=== PATIENT | female | born 1970 | race Caucasian/White ===

== ENCOUNTER 2021-11-21 13:24 | Inpatient (IN) | payer MEDICARE, MEDICAID ==
[~2021-11-21] VITALS: Ht 170.2 cm; Wt 60.9 kg
[2021-11-21 14:14] VITALS: BP 134/61
[2021-11-21 14:20] VITALS: BP 134/61
[2021-11-21] MEDS ORDERED: SEROQUEL25 MG PO (14:30)
[2021-11-21] MEDS ORDERED: lithium PO (14:30)
[2021-11-21 15:26] VITALS: BP 134/61
[2021-11-21] MEDS: Morphine 4mg INJECTION 4 MG/ML INJ IV PRN ×2 (17:19→23:34)
[2021-11-21] MEDS: ONDANSETRON HCL INJ 2MG/ML 2ML 2 MG/ML VIAL IV PRN ×2 (17:19→23:33)
[2021-11-21] MEDS ORDERED: SODIUM CHLORIDE 0.9% 250ML 250 ML ONE ×2 (17:27→18:42)
[2021-11-21] MEDS: METRONIDAZOLE 500MG/NS 100ML 100 ML IV SCH (18:34)
[2021-11-21 20:00] VITALS: BP 134/61
[2021-11-21 22:08] VITALS: BP 98/58
[2021-11-22] VITALS (7 sets, daily range): BP systolic 92–103; BP diastolic 51–85
[2021-11-22] MEDS: METRONIDAZOLE 500MG/NS 100ML 100 ML IV SCH ×3 (02:11→17:45)
[2021-11-22] MEDS: Morphine 4mg INJECTION 4 MG/ML INJ IV PRN ×4 (02:53→21:19)
[2021-11-22] MEDS: ONDANSETRON HCL INJ 2MG/ML 2ML 2 MG/ML VIAL IV PRN ×4 (02:53→21:19)
[2021-11-22 08:07] LABS: BASOPHILS # (AUTO) 0.1 (0.0-0.1); BASOPHILS % 1.4 % (0.0-1.0); EOSINOPHILS # (AUTO) 0.1 (0.0-0.4); EOSINOPHILS % 2.1 % (0.0-6.0); HEMATOCRIT 39.5 % (34.2-44.1); HEMOGLOBIN 12.2 g/dL (12.0-16.0); LYMPHOCYTES # (AUTO) 1.6 (1.0-3.2); MEAN CORPUSCULAR HEMOGLOBIN 30.5 pg (28-32); MEAN CORPUSCULAR HGB CONC 30.9 g/dL (31-35); MEAN CORPUSCULAR VOLUME 98.8 fL (81-99); MONOCYTES # (AUTO) 0.5 (0.2-0.8); MONOCYTES % 11.7 % (4.4-11.3); NEUTROPHILS % 47.6 % (38.7-80.0); PLATELET COUNT 130 x10e3/uL (140-360); RED CELL DISTRIBUTION WIDTH 12.7 % (11.7-14.4)
[2021-11-22 08:32] LABS: ALBUMIN 3.4 g/dL (3.5-5.0); ALBUMIN/GLOBULIN RATIO 1.6 (0.8-2.0); ANION GAP 10.1 mmol/L (8-16); CALCIUM 8.8 mg/dL (8.4-10.2); CREATININE, SERUM 0.9 mg/dL (0.57-1.11); POTASSIUM 4.1 mmol/L (3.5-5.1)
[2021-11-22] MEDS: LITHIUM CARBONATE 150 MG CAPSULE PO SCH (10:30)
[2021-11-22] MEDS ORDERED: EPHEDRINE SULFATE INJ 50 MG/ML VIAL ONE (12:24)
[2021-11-22] MEDS ORDERED: PROPOFOL IV EMULSION 10 MG/ML 20 ML VIAL ONE (12:24)
[2021-11-22] MEDS ORDERED: LIDOCAINE HCL 2% LOCAL INJ 5 ML SDV VIAL INJ ONE (12:24)
[2021-11-23] VITALS (8 sets, daily range): BP systolic 95–130; BP diastolic 58–76
[2021-11-23] MEDS: ONDANSETRON HCL INJ 2MG/ML 2ML 2 MG/ML VIAL IV PRN ×5 (00:38→21:03)
[2021-11-23] MEDS: Morphine 4mg INJECTION 4 MG/ML INJ IV PRN ×6 (00:38→21:04)
[2021-11-23] MEDS: METRONIDAZOLE 500MG/NS 100ML 100 ML IV SCH ×3 (03:50→17:47)
[2021-11-23] MEDS: QUETIAPINE FUMARATE 25 MG TAB PO SCH (09:13)
[2021-11-23] MEDS: LITHIUM CARBONATE 150 MG CAPSULE PO SCH (09:13)
[2021-11-24] VITALS (8 sets, daily range): BP systolic 102–134; BP diastolic 57–76
[2021-11-24] MEDS: METRONIDAZOLE 500MG/NS 100ML 100 ML IV SCH ×3 (03:02→23:22)
[2021-11-24] MEDS: QUETIAPINE FUMARATE 25 MG TAB PO SCH (09:00)
[2021-11-24] MEDS: LITHIUM CARBONATE 150 MG CAPSULE PO SCH (09:00)
[2021-11-24] MEDS: Morphine 4mg INJECTION 4 MG/ML INJ IV PRN ×3 (14:41→23:24)
[2021-11-24] MEDS: ONDANSETRON HCL INJ 2MG/ML 2ML 2 MG/ML VIAL IV PRN ×3 (14:41→23:25)
[2021-11-25] VITALS: BP 105/68
[2021-11-25] MEDS: Morphine 4mg INJECTION 4 MG/ML INJ IV PRN ×2 (03:28→07:04)
[2021-11-25] MEDS: ONDANSETRON HCL INJ 2MG/ML 2ML 2 MG/ML VIAL IV PRN ×2 (03:28→07:04)
[2021-11-25 04:00] VITALS: BP 102/65
[2021-11-25] MEDS: METRONIDAZOLE 500MG/NS 100ML 100 ML IV SCH (05:40)
[2021-11-25 06:19] LABS: CLARITY,URINE CLEAR (CLEAR); COLOR,URINE COLORLESS (YELLOW); KETONES,URINE NEGATIVE (NEGATIVE); LEUKOCYTE ESTERASE ,URINE NEGATIVE (NEGATIVE); NITRITE,URINE NEGATIVE (NEGATIVE); PROTEIN,URINE DIPSTICK NEGATIVE (NEGATIVE); URINE UROBILINOGEN 0.2 mg/dL (0.2 - 1)
[2021-11-25 06:54] LABS: EPITHELIAL CELLS,URINE RARE /LPF
[2021-11-25] MEDS ORDERED: Morphine 2mg Syringe 2 MG/ML SYR ONE (07:10)
[2021-11-25 07:48] VITALS: BP 99/52
[2021-11-25 09:00] VITALS: BP 99/52
[2021-11-25] MEDS: QUETIAPINE FUMARATE 25 MG TAB PO SCH (09:00)
[2021-11-25] MEDS: LITHIUM CARBONATE 150 MG CAPSULE PO SCH (09:00)
== END 2021-11-25 10:35 | disposition home or self-care (01) | DRG 379 ==
LOC: MED/SURG3 13:24
PROVIDERS: ADMIT Internal Medicine; ATTEND Internal Medicine
PROC: 0DB88ZX Excision of Small Intestine, Via Natural or Artificial Opening Endoscopic, Diagnostic (ICD-10-PCS; 2021-11-22)
PROC: 0D778ZZ Dilation of Stomach, Pylorus, Via Natural or Artificial Opening Endoscopic (ICD-10-PCS; 2021-11-22)
PROC: 0DB78ZX Excision of Stomach, Pylorus, Via Natural or Artificial Opening Endoscopic, Diagnostic (ICD-10-PCS; principal; 2021-11-22 09:00)
DX: K29.71 Gastritis, unspecified, with bleeding (principal); K22.89 Other specified disease of esophagus; K22.2 Esophageal obstruction; F25.0 Schizoaffective disorder, bipolar type; I25.2 Old myocardial infarction; Z20.822 Contact with and (suspected) exposure to COVID-19; R10.9 Unspecified abdominal pain
CPT/HCPCS: 36415; 43239; 78227; 80053; 80178; 81001; 82948; 85025; 88305; 88312; 88342; A9537; J0696; J2001; J2270; J2405; J7050